=== PATIENT | male | born 1980 | race Caucasian/White ===

== ENCOUNTER 2016-12-24 18:42 | Emergency (ER) | payer OTHER ==
[~2016-12-24] VITALS: Ht 193 cm; Wt 117.9 kg
[2016-12-24 19:10] LABS: ABSOLUTE BASOPHIL COUNT 0 /CUMM (0.0-0.2); ABSOLUTE EOSINOPHIL COUNT 0.2 /CUMM (0.0-0.7); ABSOLUTE GRANULOCYTE CT 4.6 /CUMM (1.4-6.5); ABSOLUTE LYMPH COUNT 2.7 /CUMM (1.2-3.4); ABSOLUTE MONOCYTE COUNT 0.6 /CUMM (0.10-0.60); BASOPHIL % 0.4 % (0.0-2.0); EOSINOPHIL % 2.2 % (0-5); GRANULOCYTE % 56.9 % (42.2-75.2); HEMATOCRIT 44.5 % (42-52); MEAN CORPUSCULAR HGB 29.8 PG (27.0-31.0); MEAN CORPUSCULAR HGB CONC 33.7 G/DL (33.0-37.0); MEAN CORPUSCULAR VOLUME 88.5 FL (80.0-94.0); MEAN PLATELET VOLUME 7.7 FL (7.4-10.4); PLATELET COUNT 301 /CUMM (130-400); RBC DISTRIBUTION WIDTH 14.3 % (11.5-14.5); RED BLOOD CELL CT 5.03 /CUMM (4.70-6.10); WHITE BLOOD CELL COUNT 8.1 /CUMM (4.8-10.8)
--- NOTE | 2016-12-24 19:36 | ED GENERAL ADULT ---
History of Present Illness General Chief Complaint: General Adult Stated Complaint: PT IS HAVING HEADACHE, AND NUMB PAIN Source: patient Exam Limitations: no limitations Vital Signs & Intake/Output Vital Signs & Intake/Output Vital Signs Date Time Temp Pulse Resp B/P B/P Pulse O2 O2 Flow FiO2 Mean Ox Delivery Rate 12/24 210 98.4 87 18 161/112 97 Room Air 12/24 1939 168/94 12/24 1851 98.8 88 20 180/113 98 Room Air ED Intake and Output 12/25 0000 12/24 1200 Intake Total Output Total Balance Patient 260 lb Weight Weight Reported by Patient Measurement Method Allergies Coded Allergies: codeine (Severe, HALLUCINATION 12/24/16) Reconcile Medications Cyclobenzaprine HCl 10 MG TABLET 1 TAB PO TID PRN muscle spasm Ibuprofen 800 MG TABLET 1 TAB PO TID PRN pain Triage Note: 36 YO MALE TO TRIAGE C/O HEADCAHES X3 DAYS. STATES HEADACHE IS IN THE L BACK SIDE OF HEAD. STATES PAIN WAS SO BAD LAST PM IT WOKE HIM UP FROM A SLEEP. STATES WHEN THE PAIN GETS BAD HE LOOSES VISION IN THE L EYE. 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 NEUROS INTACT. Triage Nurses Notes Reviewed? yes Onset: Gradual Duration: week(s): Timing: recent history Injury Environment: home Severity: mild Modifying Factors: Improves With: rest. Associated Symptoms: headache, left arm numbness HPI: 36-year-old gentleman in prior good health, history of borderline hypertension, presents with a left-sided headache for the past 3 days. He states that the pain is mostly in the back part of his left side of his scalp. He notes occasional change in vision over the past 3 days. He noted some mild tingling of his left arm. The symptoms were worse when he was at a high school event. He came to the emergency department for further evaluation. He states that presently his vision is fine. He states that he never had loss of strength, dysarthria, difficulty swallowing or speaking, dizziness. He never had the feeling that he was going to lose consciousness. He is otherwise well and has no other concerns. Past History Travel History Traveled to [place] past 21 day No Medical History Any Pertinent Medical History? see below for history Neurological: NONE EENT: NONE Cardiovascular: BOARDERLINE HTN Respiratory: NONE Gastrointestinal: NONE Hepatic: NONE Renal: NONE Musculoskeletal: NONE Psychiatric: NONE Endocrine: NONE Blood Disorders: NONE Cancer(s): NONE ELECTRONICS RESEARCH ENGINEER/Reproductive: NONE Surgical History Surgical History: none Psychosocial History What is your primary language Vietnamese Tobacco Use: Never used Family History Hx Contributory? No Review of Systems Review of Systems Constitutional: Reports: no symptoms. EENTM: Reports: no symptoms. Respiratory: Reports: no symptoms. Cardiovascular: Reports: no symptoms. GI: Reports: no symptoms. Genitourinary: Reports: no symptoms. Musculoskeletal: Reports: no symptoms. Skin: Reports: no symptoms. Neurological/Psychological: Reports: no symptoms. Hematologic/Endocrine: Reports: no symptoms. Immunologic/Allergic: Reports: no symptoms. All Other Systems: Reviewed and Negative Physical Exam Physical Exam General Appearance: well developed/nourished, mild distress Head: atraumatic, normal appearance, tenderness along scalp musculature. no sign of infection Eyes: Bilateral: normal appearance. Ears, Nose, Throat: normal pharynx Neck: normal inspection, supple, full range of motion Respiratory: normal breath sounds, chest non-tender, no respiratory distress, quiet respiration, lungs clear Cardiovascular: regular rate/rhythm Gastrointestinal: normal bowel sounds, soft, non-tender, no organomegaly Back: normal inspection Extremities: normal inspection Neurologic/Psych: no motor/sensory deficits, awake, alert, oriented x 3, normal gait Skin: intact, normal color, warm/dry Core Measures ACS in differential dx? No CVA/TIA Diagnosis: No Severe Sepsis Present: No Septic Shock Present: No Progress Differential Diagnoses I considered the following diagnoses in my evaluation of the patient: migraine vs tension headache vs other. Plan of Care: Orders Procedure Date/time Status COMPREHENSIVE METABOLIC PANEL 12/24 1848 Complete CBC WITHOUT DIFFERENTIAL 12/24 1848 Complete EKG 12/24 1848 Active Laboratory Tests 12/24/16 1900: Anion Gap 14, Estimated GFR > 60, BUN/Creatinine Ratio 12.0, Glucose 102 H, Calcium 8.5, Total Bilirubin 0.5, AST 29, ALT 78 H, Alkaline Phosphatase 50, Total Protein 7.0, Albumin 4.5, Globulin 2.5, Albumin/Globulin Ratio 1.8, CBC w Diff NO MAN DIFF REQ, RBC 5.03, MCV 88.5, MCH 29.8, RDW 14.3, MPV 7.7, Gran % 56.9, Lymphocytes % 33.0, Monocytes % 7.5, Eosinophils % 2.2, Basophils % 0.4, Absolute Granulocytes 4.6, Absolute Lymphocytes 2.7, Absolute Monocytes 0.6, Absolute Eosinophils 0.2, Absolute Basophils 0, PUBS MCHC 33.7 Diagnostic Imaging: Viewed by Me: CT Scan. Discussed w/RAD: CT Scan. Radiology Impression: head ct... no acute disease Initial ED EKG: normal axis, normal intervals, normal p-waves, normal QRS complex, normal sinus rhythm Comments: PATIENT: JOSELUIS PATTON PRESENT AGE: 36 PATIENT ACCOUNT NO: [id number] : 81 LOCATION: [facility] ORDERING PHYSICIAN: SHANEL KANG MD SERVICE DATE: 12/24/16 EXAM TYPE: CAT - CT HEAD WO IV CONTRAST EXAMINATION: CT HEAD WITHOUT CONTRAST CLINICAL INFORMATION: Worsening headaches and left-sided numbness. Assess for mass. COMPARISON: None. TECHNIQUE: Contiguous axial imaging was performed from the skull base to vertex without intravenous administration of contrast. DLP: 696.51 mGy-cm FINDINGS: There is no evidence of acute intracranial hemorrhage or territorial infarction. No abnormal mass effect or midline shift is seen. Bose to white matter differentiation is well preserved. No extra-axial fluid collections are identified. The ventricles are normal in size. There is no abnormal attenuation within the brain parenchyma. The osseous structures and soft tissues are normal; there is a persistent metopic suture which is a normal variant. The mastoid air cells and visualized portions of the paranasal sinuses are well aerated. IMPRESSION: 1. There are no acute intracranial findings. 2. There are no masses or collections. 3. The visualized paranasal sinuses are well-aerated. DICTATED BY: OPHELIA HOFFMAN MD DATE/TIME DICTATED:12/24/161958 CONSTRUCTION RIGGER:MICHAEL DATE/TIME TRANSCRIBED:12/24/161958 CONFIDENTIAL, DO NOT COPY WITHOUT APPROPRIATE AUTHORIZATION. <Electronically signed in Other Vendor System> SIGNED BY: OPHELIA HOFFMAN MD 12/24/162005 Departure Departure Disposition: HOME OR SELF CARE Condition: Stable Clinical Impression Primary Impression: Headache Referrals: Maxim VIDAL MD (PCP/Family) Departure Forms: Customer Survey General Discharge Information Prescriptions: Current Visit Scripts Cyclobenzaprine HCl 1 TAB PO TID PRN muscle spasm #30 TAB Ibuprofen 1 TAB PO TID PRN pain #30 TAB Comments Plan exam, negative CAT scan, patient likely has a component of musculoskeletal versus migraine headache. I referred him to neurology for close follow-up. Critical Care Note Critical Care Note Critical Care Time: non-applicable
--- NOTE | 2016-12-24 20:06 | CT SCAN REPORT ---
EXAMINATION: CT HEAD WITHOUT CONTRAST CLINICAL INFORMATION: Worsening headaches and left-sided numbness. Assess for mass. COMPARISON: None. TECHNIQUE: Contiguous axial imaging was performed from the skull base to vertex without intravenous administration of contrast. DLP: 696.51 mGy-cm FINDINGS: There is no evidence of acute intracranial hemorrhage or territorial infarction. No abnormal mass effect or midline shift is seen. Bose to white matter differentiation is well preserved. No extra-axial fluid collections are identified. The ventricles are normal in size. There is no abnormal attenuation within the brain parenchyma. The osseous structures and soft tissues are normal; there is a persistent metopic suture which is a normal variant. The mastoid air cells and visualized portions of the paranasal sinuses are well aerated. IMPRESSION: 1. There are no acute intracranial findings. 2. There are no masses or collections. 3. The visualized paranasal sinuses are well-aerated.
[2016-12-24 21:02] VITALS: BP 161/112
[2016-12-24] MEDS ORDERED: CYCLOBENZAPRINE10 M1 PO (21:02)
[2016-12-24] MEDS ORDERED: IBUPROFEN800 M1 PO (21:02)
== END 2016-12-24 21:18 ==
LOC: ERH 18:42
PROVIDERS: Emergency Medicine
DX: R51 Headache (principal); R20.2 Paresthesia of skin
CPT/HCPCS: 93005; 93010; 96372; J1885